=== PATIENT | male | born 1960 | race Asian ===

== ENCOUNTER 2021-12-30 20:43 | Emergency (ER) | payer OTHER ==
[~2021-12-30] VITALS: Ht 167.6 cm; Wt 72.6 kg
[2021-12-30 20:45] VITALS: BP 121/85; TEMP 98.9
[2021-12-30 21:30] LABS: PLATELET COUNT 222 K/uL (142-355)
[2021-12-30 22:01] LABS: POTASSIUM 3.4 mmol/L (3.6-5.2)
[2021-12-31] MEDS ORDERED: MAGNSUS68 PO (03:16)
[2021-12-31] MEDS ORDERED: ONDA4TAB3 PO (03:16)
[2021-12-31] MEDS ORDERED: SCOP1.5D TD (03:18)
[2021-12-31] MEDS ORDERED: AMLODIPINE BESYLATE PO (04:28)
[2021-12-31] MEDS ORDERED: PEPCID40 MG PO (04:29)
[2021-12-31] MEDS ORDERED: DIVA125C PO (04:29)
[2021-12-31] MEDS ORDERED: MIRALAX17 GM PO (04:30)
[2021-12-31] MEDS ORDERED: MULTIVITAMI1 PO (04:30)
[2021-12-31] MEDS ORDERED: MEMA10TA2 PO (04:31)
[2021-12-31] MEDS ORDERED: PROVERA10 MG PO (04:32)
[2021-12-31] MEDS ORDERED: OMEPRAZOLE DR40 MG PO (04:32)
[2021-12-31] MEDS ORDERED: TRAZODONE HYDRO50 MG PO (04:33)
[2021-12-31] MEDS ORDERED: DOCU100C10 PO (04:33)
[2021-12-31] MEDS ORDERED: SEROQUEL50 MG PO (04:34)
[2021-12-31] MEDS ORDERED: TYLENOL325 MG PO (04:35)
== END 2021-12-30 22:30 | disposition still patient (30) ==
LOC: ED 20:43
PROVIDERS: Emergency Medicine
DX: F20.89 Other schizophrenia (principal); R45.1 Restlessness and agitation; E87.6 Hypokalemia; Z11.52 Encounter for screening for COVID-19; Z04.6 Encounter for general psychiatric examination, requested by authority
CPT/HCPCS: 36415; 80053; 81002; 85027; 87635; 93005; 99283; U0003